=== PATIENT | male | born 1955 | race Caucasian/White ===

== ENCOUNTER 2017-06-08 09:00 | Day surgery (SDC) | payer BC ==
[~2017-06-08 09:00] MED LIST: Lactated Ringers 1,000 ML IV SCH; Sodium Chloride 0.9% 10 ML Syringe FLUSH PRN
[2017-06-08] MEDS ORDERED: Propofol 200 MG/20 ML SDV ONE ×2 (09:40→09:49)
[2017-06-08] MEDS ORDERED: Midazolam 1 MG/ML 2 ML SDV ONE ×2 (09:40→09:49)
--- NOTE | 2017-06-08 09:50 | PCM.HPR ---
H & P Addendum review - H & P Addendum Review Date of Original H & P: 05/15/17 Date Reviewed: 06/08/17 Time Reviewed: 09:45 Patient was examined: No Changes (ok to proceed with colonoscopy)
--- NOTE | 2017-06-08 10:10 | PCM.OPNOTE ---
- General Post-Op/Procedure Note Date of Surgery/Procedure: 06/08/17 Operative Procedure(s): Colonoscopy Findings: Sig tics Pre Op Diagnosis: Hx Polyps Post-Op Diagnosis: Same Anesthesia Technique: MAC Primary Surgeon: Chris Hutchinson Anesthesia Provider: Paty Duran Complications: None Condition: Good
[2017-06-08 14:12] VITALS: BP 153/93
--- NOTE | 2017-06-08 14:30 | OR ---
Date of Procedure: 06/08/2017 PREOPERATIVE DIAGNOSIS: History of colon polyps. POSTOPERATIVE DIAGNOSIS: Sigmoid diverticulosis. PROCEDURE: Colonoscopy. ANESTHESIA: IV sedation. DESCRIPTION OF PROCEDURE: The patient was brought to the procedure room, where he was placed on his left side and IV sedation administered. Digital rectal exam was done, which was normal. Colonoscope was inserted and advanced to the level of the cecum without difficulty. Cecal position was confirmed by identifying the appendiceal lumen and ileocecal valve. Prep was good and surfaces were well visualized. Upon withdrawing the scope, the ascending, transverse, and descending colon were normal in appearance. The sigmoid colon had several diverticula present. The rectum was normal and retroflexion was normal. Air was removed and the scope withdrawn. The patient tolerated the procedure well and returned to recovery in stable condition. Recommend routine colon screening again in 5 years. ROMARIO CASTILLO MD /[id number]
== END 2017-06-08 11:23 | disposition home or self-care (01) ==
LOC: LL.SDS 09:00
PROVIDERS: ATTEND Surgery
DX: Z12.11 Encounter for screening for malignant neoplasm of colon (principal); K57.30 Diverticulosis of large intestine without perforation or abscess without bleeding; I25.10 Atherosclerotic heart disease of native coronary artery without angina pectoris; J44.9 Chronic obstructive pulmonary disease, unspecified; E78.5 Hyperlipidemia, unspecified; F32.9 Major depressive disorder, single episode, unspecified; F41.9 Anxiety disorder, unspecified; Z90.49 Acquired absence of other specified parts of digestive tract; Z98.890 Other specified postprocedural states; Z79.82 Long term (current) use of aspirin; Z79.899 Other long term (current) drug therapy; Z88.8 Allergy status to other drugs, medicaments and biological substances
CPT/HCPCS: 45378; J7120; J2250; J2704

== ENCOUNTER 2019-03-31 13:22 | Emergency (ER) | payer BC ==
[2019-03-31 13:57] LABS: CHLORIDE,CL 98 mmol/L (98-107); SODIUM,NA 137 mmol/L (136-145)
--- NOTE | 2019-03-31 14:54 | EDM.PDOC ---
ED HPI GENERAL MEDICAL PROBLEM - General Chief Complaint: Respiratory Problem Stated Complaint: chest heaviness, cough Time Seen by Provider: 03/31/19 14:00 Source of Information: Reports: Patient History Limitations: Reports: No Limitations - History of Present Illness INITIAL COMMENTS - FREE TEXT/NARRATIVE: Patient here due to cough and SOB that developed overnight this past Monday He felt fine prior to symptoms developing. SOB is worse with activity. No change with laying down vs sitting in chair. No fevers noted. No one else sick at home. Has some thicker sputum that he is coughing up. Mild runny nose, no congestion however. No other HEENT symptoms. No other complaints overall. 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 - Related Data Allergies Allergy/AdvReac Type Severity Reaction Status Date / Time povidone-iodine Allergy UNKNOWN Verified 03/31/19 15:00 [From Betadine] soap [From Betadine] Allergy UNKNOWN Verified 03/31/19 15:00 Home Meds: Home Meds Aspirin [Dora Chewable Aspirin] 81 mg PO DAILY 07/19/15 [History] Isosorbide Mononitrate [Imdur] 60 mg PO DAILY 07/19/15 [History] Lisinopril 10 mg PO DAILY 07/19/15 [History] Metoprolol Succinate [Toprol XL] 1.5 tab PO DAILY 07/19/15 [History] Moexipril/Hydrochlorothiazide [Moexipril-HCTZ 15-12.5 MG] 12.5 each PO DAILY [History] Rosuvastatin [Crestor] 20 mg PO DAILY 07/19/15 [History] Cinnamon Bark [Cinnamon] 500 mg PO DAILY 06/08/17 [History] Citalopram Hydrobromide [Celexa] 20 mg PO DAILY 06/08/17 [History] Fish Oil/[place]-3 Fatty Acids [Fish Oil 1,000 MG] 1,000 mg PO DAILY 06/08/17 [ History] Multivitamins [Tab-A-Marquise] 1 tab PO DAILY 06/08/17 [History] Doxycycline [Vibramycin] 100 mg PO BID #14 cap 03/31/19 [Rx] Past Medical History HEENT History: Reports: Other (See Below) Other HEENT History: wears glasses Cardiovascular History: Reports: Afib, Angina, CAD, High Cholesterol, Other ( See Below) Other Cardiovascular History: [place] in 2003, history of atril fibrillation with rapid ventricular response, stable angina Respiratory History: Reports: COPD Genitourinary History: Reports: None Musculoskeletal History: Reports: Fracture, Other (See Below) Other Musculoskeletal History: L1-2 fracture and L5 compression fracture after accident in 06/2015 Neurological History: Reports: None Psychiatric History: Reports: Addiction, Anxiety, Depression Endocrine/Metabolic History: Reports: None Hematologic History: Reports: None Immunologic History: Reports: None Oncologic (Cancer) History: Reports: None Dermatologic History: Reports: None - Past Surgical History GI Surgical History: Reports: Appendectomy Musculoskeletal Surgical History: Reports: Arthroscopic Procedure Social & Family History - Tobacco Use Smoking Status *Q: Former Smoker (quit 2000) - Caffeine Use Caffeine Use: Reports: Coffee, Soda - Alcohol Use Alcohol Use History: Yes Days Per Week of Alcohol Use: 7 ("a lot", does not specify as to how many drinks daily. Denies DTs. Reported to nurse approximately 8 drinks daily. ) Alcohol Use in Last Twelve Months: Yes Alcohol Use Frequency: Daily - Recreational Drug Use Recreational Drug Use: No Drug Use in Last 12 Months: No ED ROS GENERAL - Review of Systems Review Of Systems: See Below Constitutional: Denies: Fever, Malaise, Weakness, Night Sweats, Diaphoresis, Decreased Appetite HEENT: Reports: No Symptoms Respiratory: Reports: Shortness of Breath, Cough, Sputum. Denies: Wheezing, Pleuritic Chest Pain, Hemoptysis Cardiovascular: Reports: No Symptoms. Denies: Chest Pain, Lightheadedness GI/Abdominal: Reports: No Symptoms : Reports: No Symptoms Musculoskeletal: Reports: No Symptoms Skin: Reports: No Symptoms Neurological: Reports: No Symptoms Psychiatric: Reports: No Symptoms Hematologic/Lymphatic: Reports: No Symptoms ED EXAM, GENERAL - Physical Exam Exam: See Below Exam Limited By: No Limitations General Appearance: Alert, WD/WN, No Apparent Distress Eye Exam: Bilateral Eye: EOMI, PERRL Ears: Normal External Exam Nose: No: Nasal Deformity, Nasal Swelling, Nasal Drainage Throat/Mouth: Normal Inspection, Normal Lips, Normal Voice, No Airway Compromise Head: Atraumatic, Normocephalic Neck: Supple, Non-Tender, Full Range of Motion Respiratory/Chest: No Respiratory Distress, Lungs Clear, No Accessory Muscle Use , Chest Non-Tender, Decreased Breath Sounds (throughout) Cardiovascular: Normal Peripheral Pulses, Regular Rate, Rhythm, No Murmur GI/Abdominal: Soft, Non-Tender (Male) Exam: Deferred Rectal (Males) Exam: Deferred Back Exam: No: CVA Tenderness (L), CVA Tenderness (R), Muscle Spasm Extremities: Normal Inspection, Normal Capillary Refill Neurological: Alert, Oriented, Normal Cognition, Normal Gait, No Motor/Sensory Deficits Psychiatric: Normal Affect, Normal Mood Skin Exam: Warm, Dry, Intact, Normal Color Course - Vital Signs Last Recorded V/S: Last Vital Signs Temp 36.4 C 03/31/19 13:40 Pulse 89 03/31/19 13:40 Resp 24 H 03/31/19 13:40 BP 163/92 H 03/31/19 16:52 Pulse Ox 94 L 03/31/19 13:40 - Orders/Labs/Meds Orders: Active Orders 24 hr Category Date Time Status RT Aerosol Therapy [RC] ASDIRECTED Care 03/31/19 14:48 Active CXR [Chest 2V] [CR] Stat Exams 03/31/19 13:41 Taken Labs: Laboratory Tests 03/31/19 03/31/19 03/31/19 Range/Units 13:35 13:35 14:20 WBC 5.2 (4.0-10.2) K/uL RBC 4.52 (4.33-5.41) M/uL Hgb 14.8 (13.1-16.8) g/dL Hct 42.2 (39.0-49.0) % MCV 93.4 (84.0-98.0) fL MCH 32.7 (28.2-33.3) pg MCHC 35.1 (31.7-36.0) g/dL RDW 12.5 (11.2-14.1) % Plt Count 195 (150-350) K/uL Neut % (Auto) 68.7 (45.0-80.0) % Lymph % (Auto) 13.4 (10.0-50.0) % [place] % (Auto) 16.7 H (2.0-14.0) % Eos % (Auto) 0.6 (0.0-5.0) % Baso % (Auto) 0.6 (0.0-2.0) % Neut # (Auto) 3.59 (1.40-7.00) K/uL Lymph # (Auto) 0.70 (0.50-3.50) K/uL [place] # (Auto) 0.87 (0.00-1.00) K/uL Eos # (Auto) 0.03 (0.00-0.50) K/uL Baso # (Auto) 0.03 (0.00-0.20) K/uL Sodium 137 (136-145) mmol/L Potassium 3.3 L (3.5-5.1) mmol/L Chloride 98 (98-107) mmol/L Carbon Dioxide 26.5 (21.0-32.0) mmol/L BUN 7 (7-18) mg/dL Creatinine 0.60 (0.51-1.17) mg/dL Est Cr Clr Drug Dosing TNP Estimated GFR (MDRD) > 60 mL/min Glucose 150 H (74-106) mg/dL Calcium 8.8 (8.5-10.1) mg/dL Total Bilirubin 0.6 (0.2-1.0) mg/dL AST 32 (15-37) U/L ALT 46 (12-78) U/L Alkaline Phosphatase 104 (46-116) IU/L Total Protein 7.0 (6.4-8.2) g/dL Albumin 3.8 (3.4-5.0) g/dL Specimen Type Urinvoid Urine Color Yellow Urine Appearance Clear Urine pH 5.0 (5.0-9.0) Ur Specific [place] 1.025 (1.005-1.030) Urine Protein Trace H (NEGATIVE) mg/dL Urine Glucose (UA) Negative (NEGATIVE) mg/dL Urine Ketones 15 H (NEGATIVE) mg/dL Urine Occult Blood Negative (NEGATIVE) Urine Nitrite Negative (NEGATIVE) Urine Bilirubin Negative (NEGATIVE) Urine Urobilinogen 0.2 (0.2-1.0) E.U./dL Ur Leukocyte Esterase Negative (NEGATIVE) Urine RBC 0-5 /HPF Urine WBC 0-5 /HPF Ur Epithelial Cells Few /LPF Amorphous Sediment Few (0/HPF) /HPF Urine Bacteria Few (NONE TO FEW) /HPF Meds: Medications Discontinued Medications Generic Name Dose Route Start Last Admin Trade Name Freq PRN Reason Stop Dose Admin Albuterol/Ipratropium 3 ml 03/31/19 14:48 03/31/19 15:09 Duoneb 3.0-0.5 Mg/3 Ml NEB 03/31/19 14:49 3 ml ONETIME ONE Administration Albuterol/Ipratropium Confirm 03/31/19 15:05 03/31/19 15:10 Duoneb 3.0-0.5 Mg/3 Ml Administered 03/31/19 15:06 Not Given Dose 3 ml .ROUTE .STK-MED ONE Magnesium Oxide 800 mg 03/31/19 15:16 Magnesium Oxide PO 03/31/19 15:17 ONETIME ONE Methylprednisolone Sodium Succinate 125 mg 03/31/19 14:47 03/31/19 15:10 Solu-Medrol IM 03/31/19 14:48 125 mg ONETIME ONE Administration Potassium Chloride 40 meq 03/31/19 15:15 Klor-Con M20 PO 03/31/19 15:16 ONETIME ONE - Radiology Interpretation Free Text/Narrative:: Chest xray did not show focal infiltrates/pneumo/pneumonia - Re-Assessments/Exams Free Text/Narrative Re-Assessment/Exam: 03/31/19 15:25 Normal WBC level. Chem showed glucose 150 and K 3.3 UA normal. Suspect pneumonitis s/p heavy dust/particle exposure at work given history/exam Cannot fully rule out early viral infection however. Plan at this time is to give the patient a neb treatment. Will send neb machine and nebs home with patient to be used regularly over the next few days. Solu-medrol also given. Rx for antibiotic dispensed that should be started if patient develops fevers or notes worsening overall symptoms. Again, at this time there is minimal suspicion for bacterial lung infection as noted above. Potassium tab given. No work. [employer] form filled out. To make an appointment for recheck at [facility] on Monday, two days from now. BP to be rechecked at that time. BP improved over stay. Patient says his BP is "always high". Time spend reviewing lifestyle changes that may help chronic BP elevation, including dietary change and reduction in ETOH intake. Patient not interested in making such changes at this time despite reviewed risks of hypertension. 03/31/19 15:37 Sats on room air 100% after neb Departure - Departure Time of Disposition: 15:37 Disposition: Home, Self-Care 01 Condition: Good Clinical Impression: Pneumonitis, Hypokalemia - Discharge Information *PRESCRIPTION DRUG MONITORING PROGRAM REVIEWED*: Not Applicable *COPY OF PRESCRIPTION DRUG MONITORING REPORT IN PATIENT ANIL: Not Applicable Prescriptions: Doxycycline [Vibramycin] 100 mg PO BID #14 cap Instructions: Shortness of Breath, Adult, [id number], How to Use a Nebulizer , Adult Referrals: PCP,None [Primary Care Provider] - Forms: ED Department Discharge Additional Instructions: No work for next several days. Use Nebulizer treatments: once every 6 hours until you get rechecked at [facility]. Make appointment for recheck at [facility] for two days from now (Monday). Follow up earlier at ER if you have worsening problems. Fill prescription and take antibiotics if you develop fever/worsening symptoms. Suspect at this time that you are experiencing a reaction to the inhaled dust that you were exposed to at work several days ago. Continue to work with your clinic on blood pressure management. - My Orders Last 24 Hours: My Active Orders 03/31/19 13:41 CXR [Chest 2V] [CR] Stat 03/31/19 14:48 RT Aerosol Therapy [RC] ASDIRECTED - Assessment/Plan Last 24 Hours: My Active Orders 03/31/19 13:41 CXR [Chest 2V] [CR] Stat 03/31/19 14:48 RT Aerosol Therapy [RC] ASDIRECTED
[2019-03-31] MEDS: Albuterol/Ipratropium 3.0-0.5 MG/3 ML Neb Soln NEB ONE (15:09)
[2019-03-31] MEDS: Albuterol/Ipratropium 3.0-0.5 MG/3 ML Neb Soln ONE (15:10)
[2019-03-31] MEDS: methylPREDNISolone Sodium Succinate 125 MG/2 ML SDV IM ONE (15:10)
[2019-03-31] MEDS ORDERED: Potassium Chloride 20 MEQ Tab.ER PO ONE (15:15)
[2019-03-31] MEDS ORDERED: Magnesium Oxide 400 MG Tab PO ONE (15:16)
[2019-03-31 16:53] VITALS: BP 163/92
== END 2019-03-31 16:00 | disposition home or self-care (01) ==
LOC: LL.ED 13:36
DX: J18.9 Pneumonia, unspecified organism (principal); E87.6 Hypokalemia; I48.91 Unspecified atrial fibrillation; I25.10 Atherosclerotic heart disease of native coronary artery without angina pectoris; E78.00 Pure hypercholesterolemia, unspecified; Z87.891 Personal history of nicotine dependence; Z88.8 Allergy status to other drugs, medicaments and biological substances; Z79.82 Long term (current) use of aspirin; Z79.899 Other long term (current) drug therapy
CPT/HCPCS: 36415; 71046; 80053; 81001; 85025; 94640; 99285-25; J2930; J7620-GY

== ENCOUNTER 2023-04-06 18:03 | Emergency (ER) | payer BC, MEDICARE ==
[2023-04-06 18:19] VITALS: BP 153/96; PULSE 81
[2023-04-06] MEDS ORDERED: Lidocaine 2% with EPINEPHrine 1:100,000 20 ML MDV INJECT ONE (18:41)
[2023-04-06] MEDS ORDERED: Bacitracin/Neomycin/Polymyxin B Oint 0.9 GM U/D Packet TOP ONE (20:18)
== END 2023-04-06 20:30 | disposition home or self-care (01) ==
LOC: LL.ED 18:03
DX: S51.811A Laceration without foreign body of right forearm, initial encounter (principal); I48.91 Unspecified atrial fibrillation; J44.9 Chronic obstructive pulmonary disease, unspecified; I25.2 Old myocardial infarction; E78.00 Pure hypercholesterolemia, unspecified; Z88.5 Allergy status to narcotic agent; Z79.82 Long term (current) use of aspirin; Z79.899 Other long term (current) drug therapy; W26.8XXA Contact with other sharp object(s), not elsewhere classified, initial encounter
CPT/HCPCS: 12001; 99282; 99283; J3490